=== PATIENT | male | born 1985 | race Caucasian/White ===

== ENCOUNTER 2022-11-01 16:37 | Emergency (ER) | payer MEDICAID ==
[~2022-11-01] VITALS: Ht 162.6 cm; Wt 77.0 kg
[2022-11-01 16:59] VITALS: BP 122/86
[2022-11-01] MEDS ORDERED: VISCOUS LIDOCAINE 2% 15 ML UDC PO STA (22:03)
[2022-11-01] MEDS ORDERED: MAGNESIUM/ALUMINUM HYDROXIDE/SIMETHICONE 30ML UDC PO STA (22:03)
[2022-11-01] MEDS ORDERED: FAMOTIDINE 20MG TABLET PO ONE (22:15)
[2022-11-02] MEDS ORDERED: MAG-55 MT (00:16)
[2022-11-02] MEDS ORDERED: FAMO-135 MT (00:16)
== END 2022-11-02 00:23 | disposition home or self-care (01) ==
LOC: ER 16:37
DX: R10.13 Epigastric pain (principal)
CPT/HCPCS: 71045; 93005; 99284